=== PATIENT | female | born 1945 | race Caucasian/White ===

== ENCOUNTER 2022-01-25 11:02 | Inpatient (IN) | payer MEDICARE, BC ==
[2022-01-25] MEDS ORDERED: Sodium Chloride 0.9% 10 ML Syringe FLUSH PRN (11:07)
[2022-01-25] MEDS ORDERED: Sodium Chloride 0.9% 100 ML IV SCH (12:15)
[2022-01-25] MEDS: ceFAZolin 2 GM in Sodium Chloride 0.9% 100 ML IV SCH ×2 (12:16→20:39)
[2022-01-25 12:17] LABS: ANION GAP 12.7 mmol/L (5-15)
[2022-01-25] MEDS ORDERED: Sodium Chloride 0.9% 1,000 ML IV SCH (12:30)
[2022-01-25] MEDS: metroNIDAZOLE/Normal Saline 500 MG in Premix Bag 1 BAG IV SCH ×2 (13:27→21:53)
[2022-01-25] MEDS ORDERED: QUEtiapine 25 MG Tab **OWN MED PO SCH (21:00)
[2022-01-25] MEDS: QUEtiapine 25 MG Tab PO SCH (21:51)
[2022-01-26] MEDS: Sodium Chloride 0.9% 1,000 ML IV SCH ×2 (00:07→13:20)
[2022-01-26] MEDS: ceFAZolin 2 GM in Sodium Chloride 0.9% 100 ML IV SCH ×3 (05:20→20:55)
[2022-01-26] MEDS: metroNIDAZOLE/Normal Saline 500 MG in Premix Bag 1 BAG IV SCH ×3 (06:32→21:45)
[2022-01-26] MEDS ORDERED: traMADol 50 MG Tab PO PRN (12:44)
[2022-01-26] MEDS ORDERED: LORazepam 0.5 MG Tab PO PRN (12:44)
[2022-01-26] MEDS ORDERED: Potassium Bicarbonate 25 MEQ Tab.EFF PO ONE (13:00)
[2022-01-26] MEDS: Enoxaparin 40 MG/0.4 ML Syringe SUBCUT SCH (13:04)
[2022-01-26] MEDS: Lisinopril 5 MG Tab PO SCH (13:09)
[2022-01-26] MEDS: QUEtiapine 25 MG Tab PO SCH (20:55)
[2022-01-26] MEDS ORDERED: QUEtiapine 25 MG Tab PO SCH (21:00)
[2022-01-27] MEDS: ceFAZolin 2 GM in Sodium Chloride 0.9% 100 ML IV SCH ×2 (04:34→11:40)
[2022-01-27] MEDS: metroNIDAZOLE/Normal Saline 500 MG in Premix Bag 1 BAG IV SCH ×2 (05:42→12:39)
[2022-01-27] MEDS: Sodium Chloride 0.9% 1,000 ML IV SCH (07:59)
[2022-01-27] MEDS: Lisinopril 5 MG Tab PO SCH (08:00)
[2022-01-27 08:20] LABS: ANION GAP 6.1 mmol/L (5-15)
[2022-01-27] MEDS: Enoxaparin 40 MG/0.4 ML Syringe SUBCUT SCH (12:40)
== END 2022-01-27 14:30 | disposition home or self-care (01) | DRG 390 ==
LOC: KA.MS 11:21
PROVIDERS: ADMIT Nurse Practitioner Family; ATTEND Nurse Practitioner Family
DX: K56.600 Partial intestinal obstruction, unspecified as to cause (principal); F41.9 Anxiety disorder, unspecified; E11.22 Type 2 diabetes mellitus with diabetic chronic kidney disease; I12.9 Hypertensive chronic kidney disease with stage 1 through stage 4 chronic kidney disease, or unspecified chronic kidney disease; E78.5 Hyperlipidemia, unspecified; Z20.822 Contact with and (suspected) exposure to COVID-19; N18.1 Chronic kidney disease, stage 1; M85.80 Other specified disorders of bone density and structure, unspecified site; Z90.710 Acquired absence of both cervix and uterus; Z90.49 Acquired absence of other specified parts of digestive tract; Z79.4 Long term (current) use of insulin; Z79.899 Other long term (current) drug therapy; Z79.82 Long term (current) use of aspirin; Z91.81 History of falling
CPT/HCPCS: 36415; 74018; 80048; 80053; 85025; A9270-GY; J0690; J1650; J3490; J7030; U0002